=== PATIENT | female | born 1945 | race Caucasian/White ===

== ENCOUNTER 2017-01-22 11:19 | Emergency (ER) | payer MEDICARE, OTHER ==
[2017-01-22] MEDS ORDERED: NAPROXEN 250 MG TABLET PO STA (12:28)
--- NOTE | 2017-01-22 12:31 | ED Physician Documentation ---
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 For the last 2 weeks she has had indolent and increasing pain that is very focal along the posterior of the left upper humerus. There is no motion makes it worse, it is not worse with exertion. There is no associated chest pain or trouble breathing. No dizziness. There was no injury. She tried Tylenol without relief. 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 : None HEENT: None Psych: None Musculoskeletal: Other Derm: None Other Past Medical History: Osteopenia, - Past Surgical History Past Surgical History: Yes General: Appendectomy /SUPERVISOR HEAT TREATING: Mastectomy - Allergies Allergies/Adverse Reactions: Allergies Allergy/AdvReac Type Severity Reaction Status Date / Time No Known Drug Allergies Allergy Verified 01/22/17 11:39 - Social History Does the pt smoke?: No Smoking Status: Never smoker Does the pt drink ETOH?: No Does the pt have substance abuse?: No - Family History Family history: reports: Non contributory PD ED PE NORMAL - Vitals Vital signs reviewed: Yes - General General: Alert and oriented X 3, No acute distress - HEENT HEENT: Moist mucous membranes, Pharynx benign - Neck Neck: Supple, no meningeal sign, No bony TTP - Cardiac Cardiac: RRR, No murmur - Respiratory Respiratory: No respiratory distress, Clear bilaterally - Abdomen Abdomen: Soft, Non tender - Extremities Extremities: Other (She has full and painless range of motion of the left upper extremity, there is no tenderness in the area she describes, no shingles rash. She has equal radial pulses, normal behavioral psychologist strength, thumb extension, interossei strength.) - Neuro Neuro: Alert and oriented X 3, Normal speech - Psych Psych: Normal mood, Normal affect Results - Vitals Vitals: Vital Signs - 24 hr 01/22/17 01/22/17 11:36 12:48 Temperature 36.3 C L Heart Rate 88 65 Respiratory 16 16 Rate Blood Pressure 123/75 109/85 H O2 Saturation 98 98 Oxygen O2 Source Room air - Labs Labs: Laboratory Tests 01/22/17 01/22/17 12:50 12:50 WBC 5.7 RBC 4.05 L Hgb 12.7 Hct 37.3 MCV 92.1 MCH 31.4 H MCHC 34.1 RDW 13.5 Plt Count 212 MPV 7.5 L Neut # 3.4 Lymph # 1.8 Rains # 0.5 Eos # 0.0 Baso # 0.0 Absolute Nucleated RBC 0.00 Nucleated RBCs 0.0 Sodium 138 Potassium 4.1 Chloride 102 Carbon Dioxide 28 Anion Gap 8.0 BUN 20 Creatinine 0.8 Estimated GFR (MDRD) 71 L Glucose 95 Calcium 9.4 Total Bilirubin 0.7 AST 25 ALT 11 Alkaline Phosphatase 40 L Total Protein 6.8 Albumin 4.3 Globulin 2.5 Albumin/Globulin Ratio 1.7 Lipase 31 - Rads (name of study) L humerus Radiology: EMP read contemporaneously (negative) PD MEDICAL DECISION MAKING - ED course ED course: 71-year-old woman presents with unexplained left arm pain. Cardiac causes considered, however 2 weeks of pain, that is nonexertional with no other symptoms seems very unlikely. There is no shingles rash. Metastatic breast cancer or other cancer is considered, but less likely given negative x-ray. If pain persists they are advised to follow-up with her primary care physician for advanced imaging. Departure - Departure Disposition: Home, Self Care Clinical Impression: Left arm pain Condition: Good Record reviewed to determine appropriate education?: Yes Instructions: ED Acute Pain [facility] Comments: You can take Aleve, per package instructions twice a day as needed for pain. If you find herself taking it for more than a few days take Prilosec which is available [id number]. Follow up with Dr. young for further evaluation and treatment, return if worse or if new symptoms develop.
[2017-01-22] MEDS ORDERED: NAPROXEN 250 MG TABLET PO ONE (12:41)
[2017-01-22 13:06] LABS: BASOPHILS % (AUTO) 0.6 %; EOSINOPHILS % (AUTO) 0.8 %; HCT - HEMATOCRIT 37.3 % (37.0-47.0); HGB - HEMOGLOBIN 12.7 g/dL (12.0-16.0); LYMPHOCYTES # (AUTO) 1.8 10^3/uL (1.5-3.5); LYMPHOCYTES % (AUTO) 31.2 %; MEAN CORPUSCULAR HEMOGLOBIN 31.4 pg (27.0-31.0); MEAN CORPUSCULAR HGB CONC 34.1 g/dL (32.0-36.0); MEAN CORPUSCULAR VOLUME 92.1 fL (81.0-99.0); MEAN PLATELET VOLUME 7.5 fL (7.9-10.8); MONOCYTES # (AUTO) 0.5 10^3/uL (0.0-1.0); MONOCYTES % (AUTO) 8.3 %; NEUTROPHILS # (AUTO) 3.4 10^3/uL (1.5-6.6); NEUTROPHILS % (AUTO) 59.1 %; RED BLOOD COUNT 4.05 10^6/uL (4.20-5.40); RED CELL DISTRIBUTION WIDTH 13.5 % (12.0-15.0); UNCORRECTED WHITE BLOOD COUNT 5.7 x10^3/uL; WHITE BLOOD COUNT 5.7 x10^3/uL (4.8-10.8)
--- NOTE | 2017-01-22 13:06 | XRAY Report ---
EXAM: LEFT HUMERUS RADIOGRAPHY EXAM DATE: 01/22/2017 12:54 PM. CLINICAL HISTORY: Arm pain. COMPARISON: None. TECHNIQUE: 2 views. FINDINGS: Bones: Normal. No fractures or bone lesions. Joints: Normal. No effusions or subluxations in the visualized shoulder or elbow joints. Soft Tissues: Normal. No soft tissue swelling. IMPRESSION: Normal humerus radiography. [facility] Referring Provider Line: [phone] SITE ID: [id number]
[2017-01-22 13:27] LABS: ALBUMIN/GLOBULIN RATIO 1.7 (1.0-2.2); BILIRUBIN,TOTAL 0.7 mg/dL (0.2-1.0); CALCIUM 9.4 mg/dL (8.5-10.3); CREATININE 0.8 mg/dL (0.4-1.0); POTASSIUM 4.1 mmol/L (3.5-5.0); TOTAL PROTEIN 6.8 g/dL (6.7-8.2)
[2017-01-22 13:36] VITALS: BP 112/67
== END 2017-01-22 15:21 | disposition home or self-care (01) ==
LOC: ED 11:19
DX: M79.602 Pain in left arm (principal); Z85.3 Personal history of malignant neoplasm of breast; Z90.10 Acquired absence of unspecified breast and nipple
CPT/HCPCS: 36415; 73060; 80053; 83690; 85025; 99283; A9270

== ENCOUNTER 2017-02-06 12:28 | Outpatient (CLI) | payer MEDICARE, OTHER ==
--- NOTE | 2017-02-06 14:08 | XRAY Report ---
THREE-VIEW CERVICAL SPINE: 02/06/2017 CLINICAL INDICATION: Left arm pain. FINDINGS: AP, lateral, odontoid views of the cervical spine demonstrate moderate degenerative disk a nd facet disease. Disk space narrowing is worst at C4-5. There is no evidence of acute fracture or subluxation. The prevertebral soft tissues are unremarkable. IMPRESSION: MODERATE DEGENERATIVE CHANGES. JOB #: [id number] EXT JOB #:[id number]
== END 2017-02-06 12:29 | disposition home or self-care (01) ==
LOC: DI 12:28
PROVIDERS: ATTEND Internal Medicine
DX: M50.321 Other cervical disc degeneration at C4-C5 level (principal); M47.9 Spondylosis, unspecified
CPT/HCPCS: 72040

== ENCOUNTER 2017-02-25 10:12 | Outpatient (CLI) | payer MEDICARE, OTHER ==
--- NOTE | 2017-02-25 12:45 | MRI Report ---
EXAM: MRI CERVICAL SPINE WITHOUT CONTRAST EXAM DATE: 02/25/2017 10:54 AM. CLINICAL HISTORY: Left arm pain. Degenerative joint disease. COMPARISONS: Cervical spine MRI from 06/07/2007. TECHNIQUE: Multiplanar, multisequence T1-weighted and fluid-sensitive sequences of the cervical spine without contrast. Other: None. FINDINGS: Neurologic Structures: The visualized posterior fossa structures are unremarkable. No signal abnormal ity in the visualized spinal cord. Alignment: Minimal retrolisthesis at C5-C6 and C6-C7 by approximately 2 mm. The retrolisthesis at C6- C7 is new since the previous study. Bone Marrow: No gross fractures or bone lesions. No marrow edema. Interspace Levels/Facets: The craniocervical junction is unremarkable. C1-C2: Unremarkable. C2-C3: Tiny posterior central disk protrusion. No stenoses. No change. C3-C4: Mild to moderate disk space narrowing and degenerative endplate changes. Small posterior right paracentral disk protrusion/osteophyte complex. Bilateral uncovertebral joint osteophytes, right mor e than left. Mild left and severe right facet arthropathy. Moderate narrowing of the entry zone of th e exiting right C4 nerve. Moderate right foraminal stenosis. No change. C4-C5: Severe left sided and moderate to severe right-sided disk space narrowing. Small disk bulge/os teophyte complex which is asymmetric towards the left. Moderate left and mild right facet arthropathy . Mild canal stenosis. Smsu-lb-zkrkrmgj narrowing of the entry zone of the exiting left C5 nerve. Mod erate left foraminal stenosis. No change. C5-C6: Minimal disk bulge. Hgls-tw-srzrrbis left and moderate right facet arthropathy. Mild left fora donny stenosis. No change. C6-C7: Ddmp-vv-numqtaxb facet arthropathy. No stenoses. C7-T1: Moderate left facet arthropathy. No stenoses. No change. Musculature: Normal. No edema or fatty atrophy. Other: The paravertebral and prevertebral soft tissues are normal. IMPRESSION: 1. Multilevel degenerative disk changes, osteophytosis, and facet arthropathy. There are varying degr ees of stenoses. The more significant levels are at C3-C4 and C4-C5. No change of these findings sinc e the previous study. 2. Minimal retrolisthesis at C5-C6 and C6-C7. The C6-C7 retrolisthesis is new since the previous stud y. 3. Small posterior right paracentral disk protrusion/osteophyte complex at C3-C4. Moderate narrowing of the entry zone of the exiting right C4 nerve. Moderate right foraminal stenosis. 4. Small disk bulge/osteophyte complex which is asymmetric towards the left at C4-C5. Mild canal sten osis. Whik-yu-uorridvk narrowing of the entry zone of the exiting left C5 nerve. Moderate left forami nal stenosis. [facility] Referring Provider Line: [phone] SITE ID: [id number]
== END 2017-02-25 10:13 | disposition home or self-care (01) ==
LOC: DI 10:12
PROVIDERS: ATTEND Internal Medicine
DX: M50.21 Other cervical disc displacement, high cervical region (principal); M50.30 Other cervical disc degeneration, unspecified cervical region; M47.892 Other spondylosis, cervical region; M43.12 Spondylolisthesis, cervical region
CPT/HCPCS: 72141

== ENCOUNTER 2017-03-01 16:53 | Outpatient (CLI) | payer MEDICARE, OTHER | END 2017-03-01 16:54 | disposition critical access hospital (66) | LOC: EMS 16:53 | PROVIDERS: ATTEND Surgery | DX: M25.532 Pain in left wrist (principal); W01.0XXA Fall on same level from slipping, tripping and stumbling without subsequent striking against object, initial encounter; Y93.01 Activity, walking, marching and hiking; Y92.481 Parking lot as the place of occurrence of the external cause | CPT/HCPCS: A0425; A0427 ==

== ENCOUNTER 2017-03-01 17:30 | Emergency (ER) | payer MEDICARE, OTHER ==
--- NOTE | 2017-03-01 17:38 | ED Physician Documentation ---
PD HPI UPPER EXT INJURY - Stated complaint Stated Complaint: FALL - Chief complaint Chief Complaint: Ext Problem - History obtained from History obtained from: Patient, EMS - History of Present Illness Location: Other (She had a trip and fall landing on an outstretched left, nondominant wrist and has deformed wrist, no other injuries. 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 : None HEENT: None Psych: None Musculoskeletal: Other Derm: None - Past Surgical History Past Surgical History: Yes General: Appendectomy /LICENSED CLINICIAN: Mastectomy - Present Medications Home Medications: Ambulatory Orders Medication Instructions Recorded Confirmed Citalopram [CeleXA] 10 mg PO DAILY 03/01/17 03/01/17 HYDROcod/ACETAM 5/325 [[place] 5/325] 1 - 2 ea PO Q6H PRN #15 tablet 03/01/17 - Allergies Allergies/Adverse Reactions: Allergies Allergy/AdvReac Type Severity Reaction Status Date / Time No Known Drug Allergies Allergy Verified 01/22/17 11:39 - Social History Does the pt smoke?: No Smoking Status: Never smoker Does the pt drink ETOH?: No Does the pt have substance abuse?: No PD ED PE NORMAL - Vitals Vital signs reviewed: Yes - General General: Alert and oriented X 3, No acute distress - HEENT HEENT: PERRL, EOMI - Neck Neck: Supple, no meningeal sign, No bony TTP - Extremities Extremities: No calf tenderness / cord, Other (Very mild dorsal deformity of the left wrist with tenderness, normal sensation in all areas of the hand and normal radial pulse.) - Neuro Neuro: Alert and oriented X 3, Normal speech - Psych Psych: Normal mood, Normal affect Results - Vitals Vitals: Vital Signs - 24 hr 03/01/17 03/01/17 03/01/17 17:32 18:06 19:15 Temperature 36.6 C Heart Rate 76 75 65 Respiratory 15 16 12 Rate Blood Pressure 137/65 H 112/64 125/76 O2 Saturation 94 97 98 Oxygen O2 Source Room air - Rads (name of study) L wrist 3v XR Radiology: EMP read contemporaneously (Mildly impacted distal left radius fracture with mild dorsal angulation) Procedures - Splint (location) L wrist Splint applied by: Tech Type of splint: Fiberglass, Long arm, Sugar tong Other: Patient tolerated well, No complications, Neurovascular intact, Sling provided Departure - Departure Disposition: 01 Home, Self Care Clinical Impression: Distal radius fracture, left Qualifiers: Encounter type: initial encounter Fracture type: closed Fracture morphology: Collejayant' Qualified Code(s): S52.532A - Colles' fracture of left radius, initial encounter for closed fracture Condition: Good Record reviewed to determine appropriate education?: Yes Instructions: ED Fx Forearm Radius Ulna No Redu Requ Follow-Up: [facility] [Provider Group] - Within 1 week Prescriptions: HYDROcod/ACETAM 5/325 [[place] 5/325] 1 - 2 ea PO Q6H PRN #15 tablet PRN Reason: Pain Comments: Do not drink or drive while taking narcotic pain medication. Note that many narcotic pain relievers also contain Tylenol/acetaminophen. Please ensure that your total dose of acetaminophen from all sources does not exceed 3 g (3000 mg) per day. You may get constipated while on this medication. Take a stool softener such as Colace twice a day while you are on it. Also add an gqsy-rds-wuduqrt laxative such as senna or MiraLAX on any day that you do not have a bowel movement. If you received a narcotic pain medication or sedative while in the emergency department, do not drive for the next 24 hours.
[2017-03-01] MEDS ORDERED: HYDROmorphone 1 MG/ML CARPUJECT IVP STA (17:55)
[2017-03-01] MEDS ORDERED: HYDROcod/ACET 5/325 Prepack 6 PO STA (18:57)
--- NOTE | 2017-03-01 19:05 | XRAY Preliminary Report ---
Exam: XR Wrist 3 View LT IMPRESSION: 1. Mildly impacted distal left radius fracture with mild dorsal angulation. [facility] SITE ID: [id number]
[2017-03-01] MEDS ORDERED: HYDROcod/ACET 5/325 Prepack 6 PO ONE (19:23)
--- NOTE | 2017-03-01 19:46 | XRAY Report ---
EXAM: LEFT WRIST RADIOGRAPHY EXAM DATE: 03/01/2017 06:51 PM. CLINICAL HISTORY: Wrist injury. Pain. Deformity. COMPARISON: None. TECHNIQUE: 3 views. FINDINGS: Bones: Impacted distal left radius fracture is seen with dorsal angulation measuring approximately 10 -15 degrees. Longitudinal component of the fracture is seen best on the lateral view. Joints: No dislocation. Degenerative changes of the left wrist. Soft Tissues: Soft tissue swelling. IMPRESSION: 1. Mildly impacted distal left radius fracture with mild dorsal angulation. [facility] Referring Provider Line: [phone] SITE ID: [id number]
[2017-03-01 19:53] VITALS: BP 136/75
== END 2017-03-01 19:57 | disposition home or self-care (01) ==
LOC: EDUNIT# → ED 17:30
DX: S52.532A Colles' fracture of left radius, initial encounter for closed fracture (principal); W01.0XXA Fall on same level from slipping, tripping and stumbling without subsequent striking against object, initial encounter; Z85.3 Personal history of malignant neoplasm of breast; Z90.10 Acquired absence of unspecified breast and nipple
CPT/HCPCS: 29105; 96374; 99283; 99284

== ENCOUNTER 2017-03-02 07:13 | Outpatient (CLI) | payer MEDICARE, OTHER | END 2017-03-02 07:14 | disposition EMS.NT | LOC: EMS 07:13 | PROVIDERS: ATTEND Surgery | DX: M25.532 Pain in left wrist (principal) ==

== ENCOUNTER 2017-04-18 16:39 | Outpatient (CLI) | payer MEDICARE, OTHER ==
--- NOTE | 2017-04-20 09:16 | MRI Report ---
EXAM: LEFT SHOULDER MRI WITHOUT CONTRAST EXAM DATE: 04/18/2017 05:28 PM. CLINICAL HISTORY: Arm pain, left. COMPARISON: Left humeral radiography from 04/18/2017. TECHNIQUE: Multiplanar, multisequence T1-weighted and fluid-sensitive sequences of the shoulder witho ut contrast. Other: None. FINDINGS: Acromioclavicular Region: The acromion is type II. The acromioclavicular joint is unremarkable. The c oracoacromial and coracoclavicular ligaments are intact. No subacromial/subdeltoid bursal fluid. Glenohumeral Region: No subluxation. Small glenohumeral joint effusion. There is a 5 x 3 mm loose bod y or focus of synovial thickening at the inferior aspect of glenohumeral joint. The articular cartila ge is unremarkable. The glenohumeral ligaments and joint capsule are unremarkable. Bone Marrow: No fracture, marrow edema or bone lesions. Labrum: There is a probable sub-labral foramen variant at the anterosuperior aspect of the labrum. De generative free edge fraying at the inferior aspect of the labrum. Musculature/Rotator Cuff: There is tendinosis at the distal end of the supraspinatus tendon. There is a small 7 x 1 mm linear low-grade partial-thickness intrasubstance tear at the distal aspect of the supraspinatus tendon. The infraspinatus and teres minor tendons are intact. There is an approximately 5 x 4 mm partial-thickness bursal surface tear at the distal end of the subscapularis tendon. Tear i nvolves approximately 80-90% of the tendon thickness at this location. There is a 1.4 x 0.3 x 0.2 cm ganglion within and arising from the tear. No edema or fatty atrophy. Biceps Tendon: The long head of the biceps tendon and biceps luisito are intact. Other: The subcutaneous tissues are unremarkable. IMPRESSION: 1. Tendinosis at the distal end of the supraspinatus tendon. Small 7 x 1 mm linear low-grade partial- thickness intrasubstance tear at the distal aspect of the supraspinatus tendon. 2. Small focal 5 x 4 mm high-grade partial-thickness bursal surface tear at the distal end of the sub scapularis tendon. There is a small ganglion within and arising from the subscapularis tendon tear. N o full-thickness rotator cuff tear. 3. Degenerative free edge fraying of the inferior aspect of the labrum. 4. A 5 x 3 mm loose body or focus of synovial thickening at the inferior aspect of the glenohumeral j oint. [facility] MUSCULOSKELETAL [facility]IOLOGY SECTION Referring Provider Line: [phone] SITE ID: [id number]
== END 2017-04-18 16:40 | disposition home or self-care (01) ==
LOC: DI 16:39
PROVIDERS: ATTEND Internal Medicine
DX: M75.102 Unspecified rotator cuff tear or rupture of left shoulder, not specified as traumatic (principal); M67.412 Ganglion, left shoulder

== ENCOUNTER 2017-06-23 15:07 | Outpatient (CLI) | payer MEDICARE, OTHER ==
--- NOTE | 2017-06-24 09:47 | XRAY Report ---
DATE OF SERVICE: 06/23/2017 THREE VIEW LUMBAR SPINE: 06/23/2017 CLINICAL INDICATION: Back pain. COMPARISON: MRI 01/21/2013, plain films 01/10/2013. FINDINGS: AP, lateral, coned down views of the lumbar spine demonstrate stable degenerative disk and facet disease, with disk space narrowing worst at L1-L2. There is no evidence of interval fracture or subluxation. The bowel gas pattern is normal. IMPRESSION: STABLE DEGENERATIVE CHANGES. NO SIGNIFICANT INTERVAL CHANGE. TD: 06/24/2017 10:46
--- NOTE | 2017-06-24 09:49 | XRAY Report ---
DATE OF SERVICE: 06/23/2017 FRONTAL PELVIS: 06/23/2017 CLINICAL INDICATION: Pain. FINDINGS: Frontal view of the pelvis is compared to previous film of 01/15/2013. There is no evidence of acute fracture. Mild degenerative changes are seen in the hip joints and sacroiliac joints. Surgical clips are seen in the right lower quadrant. IMPRESSION: MILD DEGENERATIVE CHANGES. NO EVIDENCE OF ACUTE FRACTURE. TD: 06/24/2017 10:48
== END 2017-06-23 15:08 | disposition home or self-care (01) ==
LOC: DI 15:07
PROVIDERS: ATTEND Internal Medicine
DX: M16.0 Bilateral primary osteoarthritis of hip (principal); M47.898 Other spondylosis, sacral and sacrococcygeal region
CPT/HCPCS: 72100; 72170

== ENCOUNTER 2018-09-13 13:11 | Outpatient (CLI) | payer MEDICARE, OTHER ==
[2018-09-13 18:36] LABS: ALBUMIN 4.5 g/dL (3.2-5.5); ALBUMIN/GLOBULIN RATIO 1.7 (1.0-2.2); ALKALINE PHOSPHATASE 41 IU/L (42-121); ALT ALANINE AMINOTRANSFERASE 14 IU/L (10-60); AST ASPARTATE AMINOTRANSFERASE 26 IU/L (10-42); BILIRUBIN,TOTAL 1.1 mg/dL (0.2-1.0); BUN - BLOOD UREA NITROGEN 28 mg/dL (6-20); CALCIUM 9.7 mg/dL (8.5-10.3); CARBON DIOXIDE - CO2 29 mmol/L (21-32); CHLORIDE 104 mmol/L (101-111); CHOL/HDL RATIO 3.8 (<4.4); CHOLESTEROL 331 mg/dL; CREATININE 0.7 mg/dL (0.4-1.0); GFR - MDRD 82 (>89); GLUCOSE 87 mg/dL (70-100); HDL CHOLESTEROL 87 mg/dL; LDL CHOLESTEROL,CALCULATED 236 mg/dL; LDL/HDL RATIO 2.7 (<4.4); SODIUM 140 mmol/L (135-145); TOTAL PROTEIN 7.2 g/dL (6.7-8.2); VLDL CHOLESTEROL 8 mg/dL
== END 2018-09-13 13:12 | disposition home or self-care (01) ==
LOC: LAB.F 13:11
PROVIDERS: ATTEND Internal Medicine
DX: E78.5 Hyperlipidemia, unspecified (principal)
CPT/HCPCS: 36415; 80053; 80061; 83721

== ENCOUNTER 2019-03-09 11:48 | Outpatient (CLI) | payer MEDICARE, OTHER ==
[2019-03-09 18:38] LABS: ALBUMIN 4.3 g/dL (3.2-5.5); ALBUMIN/GLOBULIN RATIO 1.7 (1.0-2.2); ALKALINE PHOSPHATASE 40 IU/L (42-121); ALT ALANINE AMINOTRANSFERASE 15 IU/L (10-60); AST ASPARTATE AMINOTRANSFERASE 24 IU/L (10-42); BILIRUBIN,TOTAL 0.8 mg/dL (0.2-1.0); BUN - BLOOD UREA NITROGEN 24 mg/dL (6-20); CALCIUM 9.2 mg/dL (8.5-10.3); CARBON DIOXIDE - CO2 30 mmol/L (21-32); CHLORIDE 104 mmol/L (101-111); CHOLESTEROL 209 mg/dL; CREATININE 0.7 mg/dL (0.4-1.0); GFR - MDRD 82 (>89); GLUCOSE 88 mg/dL (70-100); HDL CHOLESTEROL 69 mg/dL; LDL CHOLESTEROL,CALCULATED 131 mg/dL; LDL/HDL RATIO 1.9 (<4.4); SODIUM 140 mmol/L (135-145); TOTAL PROTEIN 6.9 g/dL (6.7-8.2); VLDL CHOLESTEROL 9 mg/dL
== END 2019-03-09 11:49 | disposition home or self-care (01) ==
LOC: LAB.S 11:48
PROVIDERS: ATTEND Internal Medicine
DX: E78.5 Hyperlipidemia, unspecified (principal)
CPT/HCPCS: 36415; 80053; 80061; 83721

== ENCOUNTER 2019-03-28 21:15 | Outpatient (CLI) | payer MEDICARE, OTHER | END 2019-03-28 21:16 | disposition critical access hospital (66) | LOC: EMS 21:15 | PROVIDERS: ATTEND Surgery | DX: R51 Headache (principal); R68.89 Other general symptoms and signs; W57.XXXA Bitten or stung by nonvenomous insect and other nonvenomous arthropods, initial encounter | CPT/HCPCS: A0425; A0427 ==

== ENCOUNTER 2019-03-28 21:45 | Emergency (ER) | payer MEDICARE, OTHER ==
--- NOTE | 2019-03-28 21:56 | ED Physician Documentation ---
History of Present Illness - Stated complaint Stated Complaint: BEE STING - History obtained from History obtained from: Patient, Family - Additonal information Additional information: This is a 74-year-old woman who was walking outside today With her dog when she stepped in a hornet/yellowjacket nest. 1 of them stung her on her left ankle through her sock and then another one somehow got inside of her coat and stung her on the left forearm. She became very shaky and subsequently became disoriented. She put ice on the stings but was having a inordinate amount of pain. She took some Tylenol for that but it was not getting any better. She then developed a terrible headache and felt very dizzy. She did not have any seizures or pass out. She is never had a significant reaction to a bee sting in the past. She also took Claritin at home. They called 911 who gave her Benadryl and a half a dose of epinephrine in route after discussing with the medical grade shoemaker. He did contact me prior to the patient's arrival to discuss rare cases of encephalitis or neuritis associated with hymenoptera stings. Review of Systems Constitutional: denies: Fever Eyes: denies: Loss of vision Cardiac: denies: Chest pain / pressure Respiratory: denies: Dyspnea GI: denies: Abdominal Pain, Nausea, Vomiting Skin: denies: Rash Neurologic: reports: Headache. 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 HEENT: None Psych: None Musculoskeletal: Other Derm: None - Past Surgical History Past Surgical History: Yes General: Appendectomy /STOCK DRIER TENDER: Mastectomy - Present Medications Home Medications: Ambulatory Orders Medication Instructions Recorded Confirmed Citalopram [CeleXA] 10 mg PO DAILY 03/01/17 04/05/17 predniSONE [Prednisone] 40 mg PO DAILY #10 tablet 03/28/19 - Allergies Allergies/Adverse Reactions: Allergies Allergy/AdvReac Type Severity Reaction Status Date / Time No Known Drug Allergies Allergy Verified 03/28/19 21:56 - Social History Does the pt smoke?: No Smoking Status: Never smoker Does the pt drink ETOH?: No Does the pt have substance abuse?: No - POLST Patient has POLST: No PD ED PE NORMAL - Vitals Vital signs reviewed: Yes - General General: No acute distress, Well developed/nourished. No: Alert and oriented X 3 (Oriented to Person and place but not time) - HEENT HEENT: Atraumatic, PERRL, EOMI, Moist mucous membranes - Neck Neck: Supple, no meningeal sign, No adenopathy, No JVD - Cardiac Cardiac: RRR, No murmur, Strong equal pulses - Respiratory Respiratory: No respiratory distress, Clear bilaterally - Abdomen Abdomen: Normal bowel sounds, Soft, No organomegaly - Derm Derm: Normal color, Warm and dry, No rash, Other (There is a pinpoint red lesion on her left foot right at the left medial ankle presumably where she was stung. We can even find the actual sting site on the left forearm. No hives.) - Extremities Extremities: No edema - Neuro Neuro: caustic room attendant 2-12 intact, No motor deficit, No sensory deficit - Psych Psych: Normal mood, Normal affect Results - Vitals Vitals: Vital Signs - 24 hr 03/28/19 03/28/19 03/29/19 21:49 23:08 00:08 Temperature 36.8 C Heart Rate 80 76 67 Respiratory 14 18 12 Rate Blood Pressure 130/77 117/83 H 112/75 O2 Saturation 100 99 97 Oxygen O2 Source Room air PD MEDICAL DECISION MAKING - ED course Complexity details: reviewed results, re-evaluated patient, d/w patient, d/w family ED course: I did recommend a head CT scan because of the bizarre nature of this pr esentation and her severe headache. Head CT was negative. She was given Solu- Medrol 125 mg IV and Toradol 30 mg IV. She was still experiencing some pain in the right ankle around the sting site but it was definitely improved. Discussed with her and her the rare possibility of encephalitis or neuritis associated with insect envenomation. They feel comfortable monitoring her symptoms at home. We will place her on 5 days of prednisone 40 mg and follow-up if she develops any signs or symptoms consistent with encephalitis which were discussed with the . Departure - Departure Disposition: 01 Home, Self Care Clinical Impression: Venomous insect bite Qualifiers: Encounter type: initial encounter Injury intent: undetermined intent Qualified Code(s): T63.484A - Toxic effect of venom of other arthropod, undetermined, initial encounter Condition: Good Instructions: Prednisone tablets, ED Bite Sting Insect Local Allergic React Follow-Up: Brett Gomes MD [Primary Care Provider] - Prescriptions: predniSONE [Prednisone] 40 mg PO DAILY #10 tablet Comments: Apply ice to the insect stings if there is still hurting you. Take Tylenol or ibuprofen as needed for pain. Start the prednisone first thing tomorrow 2 tablets daily for 5 days. Monitor closely for any neurological changes such as confusion, increasing headache, vomiting or not acting right. Return immediately if any signs of worsening neurological status. Discharge Date/Time: 03/29/19 00:09
[2019-03-28] MEDS ORDERED: KETOROLAC 30 MG/ML VIAL IVP STA (22:27)
[2019-03-28] MEDS ORDERED: methylPREDNISolone SUCCINATE 125 MG/2 ML VIAL IVP STA (22:27)
--- NOTE | 2019-03-28 23:05 | CT Report ---
Reason: headache Procedure Date: 03/28/2019 Accession Number: [id number] / [id number] Procedure: CT - HEAD WO CPT Code: FULL RESULT: EXAM: CT HEAD EXAM DATE: 03/28/2019 10:54 PM. CLINICAL HISTORY: Headache for 12 hours. COMPARISON: None. TECHNIQUE: Multiaxial CT images were obtained from the foramen magnum to the vertex. Reformats: Sagittal and coronal. IV contrast: None. In accordance with CT protocol optimization, one or more of the following dose reduction techniques were utilized for this exam: automated exposure control, adjustment of mA and/or KV based on patient size, or use of iterative reconstructive technique. FINDINGS: Parenchyma: No intraparenchymal hemorrhage. No evidence of mass, midline shift, or CT findings of acute infarction. Cm-white differentiation is distinct. Extraaxial Spaces: Normal for age. No subdural or epidural collections identified. Ventricles: The ventricles and cortical sulci are prominent, consistent with age-related tissue loss. Sinuses and orbits: Imaged paranasal sinuses, orbits, and mastoids show no significant abnormality. Bones: No evidence of fracture or calvarial defect. Other: None. IMPRESSION: Generalized age-related cortical atrophic changes without evidence of acute intracranial abnormality. [facility]
[2019-03-29 00:09] VITALS: BP 112/75
== END 2019-03-29 00:09 | disposition home or self-care (01) ==
LOC: EDUNIT# → ED 21:45
DX: T63.461A Toxic effect of venom of wasps, accidental (unintentional), initial encounter (principal); X58.XXXA Exposure to other specified factors, initial encounter; R51 Headache; R42 Dizziness and giddiness
CPT/HCPCS: 70450; 99284

== ENCOUNTER 2019-09-14 18:31 | Outpatient (CLI) | payer MEDICARE, OTHER | END 2019-09-14 18:32 | disposition EMS.NT | LOC: EMS 18:31 | PROVIDERS: ATTEND Surgery | DX: S99.912A Unspecified injury of left ankle, initial encounter (principal); W10.8XXA Fall (on) (from) other stairs and steps, initial encounter; Y92.018 Other place in single-family (private) house as the place of occurrence of the external cause ==

== ENCOUNTER 2019-09-14 19:50 | Emergency (ER) | payer MEDICARE, OTHER ==
--- NOTE | 2019-09-14 20:08 | ED Physician Documentation ---
PD HPI LOWER EXT INJURY - Stated complaint Stated Complaint: FALL/LT ANKLE PX - Chief complaint Chief Complaint: Trauma Ext - History obtained from History obtained from: Patient - History of Present Illness PD HPI LOW EXT INJURY LOCATION: Left, Ankle Type of injury: Twist (going upstairs, with twist of ankle and pain.) Where injury occurred: Home Timing - onset: How many minutes ago (30), Today Timing - details: Abrupt onset, Still present Improved by: Ice Worsened by: Moving, Palpating, Other (walking) Associated symptoms: Swelling. No: Weakness, Numbness Similar symptoms before: Has not had sx before Review of Systems Skin: denies: Abrasion (s), Laceration (s) Neurologic: denies: Focal weakness, Numbness PD PAST MEDICAL HISTORY - Past Medical History Past Medical History: Yes Cardiovascular: None Respiratory: None Endocrine/Autoimmune: None GI: None NET MOBILE DEVELOPER: Breast cancer : None HEENT: None Psych: None Musculoskeletal: Other Derm: None - Past Surgical History Past Surgical History: Yes General: Appendectomy /NET MOBILE DEVELOPER: Mastectomy - Present Medications Home Medications: Ambulatory Orders Medication Instructions Recorded Confirmed Citalopram [CeleXA] 10 mg PO DAILY 03/01/17 04/05/17 predniSONE [Prednisone] 40 mg PO DAILY #10 tablet 03/28/19 - Allergies Allergies/Adverse Reactions: Allergies Allergy/AdvReac Type Severity Reaction Status Date / Time No Known Drug Allergies Allergy Verified 09/14/19 19:57 - Social History Does the pt smoke?: No Smoking Status: Never smoker Does the pt drink ETOH?: No Does the pt have substance abuse?: No - POLST Patient has POLST: No PD ED PE NORMAL - Vitals Vital signs reviewed: Yes - General General: Alert and oriented X 3, Well developed/nourished - Derm Derm: Normal color, Warm and dry - Extremities Extremities: Other (In the anterolateral aspect of the lateral left ankle there is swelling and tenderness. No obvious deformity. The Achilles is firm and nontender. The distal foot and toes are not tender. There is no tenderness in the proximal lower leg.) - Neuro Neuro: No motor deficit, No sensory deficit Results - Vitals Vitals: Vital Signs - 24 hr 09/14/19 09/14/19 19:54 21:05 Temperature 37.0 C Heart Rate 87 84 Respiratory 20 14 Rate Blood Pressure 137/71 H 134/80 H O2 Saturation 97 99 Oxygen O2 Source Room air - Rads (name of study) left ankle Radiology: Prelim report reviewed (no fractures), See rad report PD MEDICAL DECISION MAKING - ED course Complexity details: reviewed results, considered differential, d/w patient Departure - Departure Disposition: 01 Home, Self Care Clinical Impression: Ankle sprain Qualifiers: Encounter type: initial encounter Involved ligament of ankle: unspecified ligament Laterality: left Qualified Code(s): S93.402A - Sprain of unspecified ligament of left ankle, initial encounter Condition: Stable Record reviewed to determine appropriate education?: Yes Instructions: ED Sprain Ankle W X Ray Follow-Up: Brett Gomes MD [Primary Care Provider] - Comments: Anti-inflammatories such as naproxen or ibuprofen 2-3 times a day and add Tylenol every 4-6 hours if needed for pain. Elevate rest and cool towels or ice to the area often tonight and tomorrow to reduce swelling. Ankle support/brace when up and around for the next couple of weeks till fully healed and feeling strong with walking. Use your crutches as needed for discomfort and progress weightbearing as tolerated. I would anticipate improvement as the swelling goes down over the next few days and decrease in the pain with walking over 1 to 2 weeks and resolution during that timeframe. Recheck if still hurting with walking after 1 to 2 weeks. Discharge Date/Time: 09/14/19 21:14
[2019-09-14] MEDS: IBUPROFEN 400 MG TABLET PO STA (20:23)
[2019-09-14] MEDS: ACETAMINOPHEN 325 MG TABLET PO STA (20:23)
--- NOTE | 2019-09-14 20:29 | XRAY Report ---
Reason: injury from fall, L ankle pain Procedure Date: 09/14/2019 Accession Number: [id number] / [id number] Procedure: XR - Ankle 3 View LT CPT Code: Final Report FULL RESULT: EXAM: LEFT ANKLE RADIOGRAPHY EXAM DATE: 09/14/2019 08:20 PM. CLINICAL HISTORY: Injury from fall, L ankle pain. COMPARISON: None. TECHNIQUE: 3 views. FINDINGS: Bones: Normal. No fractures or bone lesions. Joints: Moderate joint effusion. No subluxations. The ankle mortise is normally aligned. Soft Tissues: Normal. No soft tissue swelling. IMPRESSION: 1. No fracture or malalignment. 2. Moderate left ankle joint effusion. RADIA
[2019-09-14 21:06] VITALS: BP 134/80
== END 2019-09-14 21:14 | disposition home or self-care (01) ==
LOC: ED 19:50
DX: S93.402A Sprain of unspecified ligament of left ankle, initial encounter (principal)
CPT/HCPCS: 73610; 99283; A9270

== ENCOUNTER 2020-11-22 15:07 | Emergency (ER) | payer MEDICARE, OTHER ==
[2020-11-22 17:29] LABS: BASOPHILS % (AUTO) 0.3 %; EOSINOPHILS # (AUTO) 0.1 10^3/uL (0.0-0.7); EOSINOPHILS % (AUTO) 1.1 %; HCT - HEMATOCRIT 43.6 % (37.0-47.0); HGB - HEMOGLOBIN 14.3 g/dL (12.0-16.0); LYMPHOCYTES # (AUTO) 1.4 10^3/uL (1.5-3.5); LYMPHOCYTES % (AUTO) 22.2 %; MEAN CORPUSCULAR HEMOGLOBIN 31.6 pg (27.0-31.0); MEAN CORPUSCULAR HGB CONC 32.8 g/dL (32.0-36.0); MEAN CORPUSCULAR VOLUME 96.2 fL (81.0-99.0); MEAN PLATELET VOLUME 9.3 fL (7.9-10.8); MONOCYTES # (AUTO) 0.6 10^3/uL (0.0-1.0); MONOCYTES % (AUTO) 9.2 %; NEUTROPHILS # (AUTO) 4.1 10^3/uL (1.5-6.6); PLT - PLATELET COUNT 244 10^3/uL (130-450); RED BLOOD COUNT 4.53 10^6/uL (4.20-5.40); RED CELL DISTRIBUTION WIDTH 13.1 % (12.0-15.0); WHITE BLOOD COUNT 6.1 x10^3/uL (4.8-10.8)
--- NOTE | 2020-11-22 17:40 | XRAY Report ---
PROCEDURE: Chest 1 View X-Ray INDICATIONS: Chest Pain TECHNIQUE: One view of the chest was acquired. COMPARISON: None FINDINGS: Surgical changes and devices: None. Lungs and pleura: No pleural effusions or pneumothorax. Lungs are clear. Mediastinum: Mediastinal contours appear normal. Heart size is normal. Bones and chest wall: No suspicious bony lesions. Overlying soft tissues appear unremarkable. IMPRESSION: No acute process. Reviewed by: Fely Owusu MD on 11/22/2020 5:39 PM PDT Approved by: Fely Owusu MD on 11/22/2020 5:39 PM PDT Station ID: [id number]
[2020-11-22 17:45] LABS: ALBUMIN 4.9 g/dL (3.2-5.5); ALBUMIN/GLOBULIN RATIO 2.1 (1.0-2.2); BILIRUBIN,TOTAL 0.6 mg/dL (0.2-1.0); CALCIUM 9.2 mg/dL (8.5-10.3); CREATININE 0.7 mg/dL (0.4-1.0); TOTAL PROTEIN 7.2 g/dL (6.7-8.2)
--- NOTE | 2020-11-22 18:41 | ED Physician Documentation ---
History of Present Illness - Stated complaint Stated Complaint: dizzy, double vision, memory issue - Chief complaint Chief Complaint: General - History obtained from History obtained from: Patient, Family - Additonal information Additional information: Pt comes to the ED with chief complaint of episodic double vision and an episode of dizziness. helps give history, as he states the pt has some "memory issues" for which she is under the care of a neurologist. He states the pt has had two episodes of double vision in the past week, one of which involved looking at subtitles while watching TV, and the other while looking up at the ball. The episodes did not occur on the same day, and did not involve the entire vision, but only looking at certain objects. The most recent episode was last night. Pt states she has had intermittent episodes of dizziness, which she describes as an inappropriate sense of movement. The last episode occurred within the past 24 hours. Episodes are brief, lasting some minutes. No headache. No N/V. No other focal neurologic deficits. Pt is asymptomatic currently. states that the pt was recently started on a new medication, and wonders if the sx might be a side effect of this. Review of Systems Ten Systems: 10 systems reviewed and negative Constitutional: reports: Reviewed and negative Eyes: reports: Other (diplopia) Ears: reports: Reviewed and negative Nose: reports: Reviewed and negative Throat: reports: Reviewed and negative Cardiac: reports: Reviewed and negative Respiratory: reports: Reviewed and negative GI: reports: Reviewed and negative : reports: Reviewed and negative Skin: reports: Reviewed and negative Musculoskeletal: reports: Reviewed and negative Neurologic: reports: Other (vertigo, diplopia) Psychiatric: reports: Reviewed and negative Endocrine: reports: Reviewed and negative Immunocompromised: reports: Reviewed and negative PD PAST MEDICAL HISTORY - Past Medical History Cardiovascular: None Respiratory: None Endocrine/Autoimmune: None GI: None 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: Breast cancer : None HEENT: None Psych: None Musculoskeletal: Other Derm: None - Past Surgical History Past Surgical History: Yes General: Appendectomy /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 OFFICER: Mastectomy - Present Medications Home Medications: Ambulatory Orders Medication Instructions Recorded Confirmed Citalopram [CeleXA] 10 mg PO DAILY 03/01/17 04/05/17 predniSONE [Prednisone] 40 mg PO DAILY #10 tablet 03/28/19 Aspirin Chewable [St Alvin 81 mg PO DAILY #60 tablet 11/22/20 Aspirin] - Allergies Allergies/Adverse Reactions: Allergies Allergy/AdvReac Type Severity Reaction Status Date / Time bupropion Allergy Unknown Verified 11/22/20 21:14 - Social History Does the pt smoke?: No Smoking Status: Never smoker Does the pt drink ETOH?: No Does the pt have substance abuse?: No - POLST Patient has POLST: No PD ED PE NORMAL - Vitals Vital signs reviewed: Yes - General General: Alert and oriented X 3, No acute distress - HEENT HEENT: Atraumatic, PERRL, EOMI, Moist mucous membranes - Neck Neck: Supple, no meningeal sign - Cardiac Cardiac: RRR, No murmur - Respiratory Respiratory: Clear bilaterally - Abdomen Abdomen: Normal bowel sounds, Soft, Non tender, Non distended - Derm Derm: Normal color, Warm and dry, No rash - Extremities Extremities: No deformity, Normal ROM s pain, No edema - Neuro Neuro: Alert and oriented X 3, drier take off tender 2-12 intact, No motor deficit, No sensory deficit, Normal speech - Psych Psych: Normal mood, Normal affect Results - Vitals Vitals: Oxygen O2 Source Room air - EKG (time done) 1511 Rate: Rate (enter#) (71) Rhythm: NSR [place]: LAD Intervals: Normal [place] QRS: Normal Ischemia: Normal ST segments Compare to prior EKG: Old EKG unavailable Computer interpretation: Agree with computer - Labs Labs: Laboratory Tests 11/22/20 11/22/20 11/22/20 17:24 17:24 17:24 WBC 6.1 RBC 4.53 Hgb 14.3 Hct 43.6 MCV 96.2 MCH 31.6 H MCHC 32.8 RDW 13.1 Plt Count 244 MPV 9.3 Neut # (Auto) 4.1 Lymph # (Auto) 1.4 L [place] # (Auto) 0.6 Eos # (Auto) 0.1 Baso # (Auto) 0.0 Absolute Nucleated RBC 0.00 Nucleated RBC % 0.0 Sodium 137 Potassium 4.0 Chloride 100 L Carbon Dioxide 29 Anion Gap 8.0 BUN 29 H Creatinine 0.7 Estimated GFR (MDRD) 82 L Glucose 145 H Calcium 9.2 Total Bilirubin 0.6 AST 23 ALT 16 Alkaline Phosphatase 45 Troponin I High Sens 3.0 Total Protein 7.2 Albumin 4.9 Globulin 2.3 Albumin/Globulin Ratio 2.1 Lipase 33 - Rads (name of study) CXR Radiology: Final report received, EMP read indepedently, See rad report (nad) PD MEDICAL DECISION MAKING - ED course Complexity details: reviewed results, re-evaluated patient, considered differential, d/w patient, d/w family ED course: Pt was worked up with labs, EKG, CXR, and CT/CTA head/neck. She was overall very well-appearing in the ED, and NIHSS score was 0. Her work-up was unremarkable. I have d/w pt and that I am not exactly sure of the cause of the pt's sx, as they are minor and fairly nonspecific. We have discussed the possibility of atypical TIA, adverse medication effect, MS, or complication of dementia. We have discussed that the pt should follow up with her neurologist and her PCP in the near future for further evaluation, should the episodes continue to happen. We have discussed the usual indications for return. Departure - Departure Disposition: 01 Home, Self Care Clinical Impression: Diplopia, Vertigo Condition: Stable Instructions: ED Double Vision, ED Vertigo Unspecified Prescriptions: Aspirin Chewable [St Alvin Aspirin] 81 mg PO DAILY #60 tablet Comments: Your work-up, including CT angiogram of the head and neck, looks fairly good. There is no evidence of an acute occlusion of any of the arteries of your head and neck, and there is no evidence of any narrowing of your carotid arteries. You do not have a heart murmur and your cardiac rhythm is normal. As such, it is highly unlikely that you would have any sort of clot that would be springing from the heart itself. You may follow-up with your primary doctor to discuss whether an echocardiogram would still be indicated in the outpatient setting, considering the above. Please take an aspirin every day to help prevent stroke. Please follow-up with your neurologist to further evaluate the symptoms you have been having. Discharge Date/Time: 11/22/20 21:05
[2020-11-22] MEDS ORDERED: IOVERSOL 320 100 ML VIAL IVP ONE ×2 (18:42→21:35)
--- NOTE | 2020-11-22 20:30 | CT Report ---
PROCEDURE: ANGIO HEAD W/WO INDICATIONS: L sided facial droop CONTRAST: IV CONTRAST: Optiray 320 ml: 80 PO CONTRAST: *NO PO CONTRAST TECHNIQUE: Precontrast 4.5 mm thick angled axial sections acquired from the foramen magnum to the vertex. Afte r the administration of intravenous contrast, 1 mm thick sections acquired through the [place] of [place] is. Postcontrast 4.5 mm thick sections then re-acquired from the foramen magnum to the vertex. 3-di mensional esnhnyh-zohsmjggb-ickwdqkgft (MIP) and/or volume rendering reformats were acquired of the c entral intracranial vasculature. For radiation dose reduction, the following was used: automated ex posure control, adjustment of mA and/or kV according to patient size. COMPARISON: None FINDINGS: Image quality: Excellent. Anterior circulation: Intracranial internal carotid arteries are normal in size and flow. The flow within the paired anterior cerebral arteries is normal and symmetric. The flow within the middle cer ebral arteries is normal and symmetric. The anterior communicating artery is seen. No aneurysms are seen. Posterior circulation: Visualized portions of the vertebral arteries demonstrate normal caliber, and join to form a normal appearing basilar artery. origin of the left posterior cerebral artery. Flow within the posterior cerebral arteries is normal and symmetric. No aneurysms are seen. CSF spaces: Ventricles are normal in size and shape. Basal cisterns are patent. No extra-axial flu id collections. Brain: No midline shift. No intracranial bleeds or masses. Cm-white matter interface appears int act. Skull and face: Calvarium and facial bones appear intact, without suspicious lesions. Sinuses: Visualized sinuses and mastoids are clear. IMPRESSION: 1. No acute intracranial abnormality. 2. Negative evaluation of the vasculature of the head. Reviewed by: Fely Owusu MD on 11/22/2020 8:28 PM PDT Approved by: Fely Owusu MD on 11/22/2020 8:28 PM PDT Station ID: [id number]
--- NOTE | 2020-11-22 20:31 | CT Report ---
PROCEDURE: ANGIO NECK W INDICATIONS: L sided facial droop, L neck pain CONTRAST: IV CONTRAST: Optiray 320 ml: 80 PO CONTRAST: *NO PO CONTRAST TECHNIQUE: After the administration of intravenous contrast, 1.5 mm axial sections acquired from the aortic arch to the [place] of [place]. Coronal 3-D maximum intensity projection (MIP) and/or volume rendering ref ormats were then performed. For radiation dose reduction, the following was used: automated exposur e control, adjustment of mA and/or kV according to patient size. COMPARISON: None. FINDINGS: Image quality: Excellent. Carotid system: The great vessels demonstrate a conventional anatomy as they arise from the aortic a rch. The origins of the common carotid arteries appear patent. The common carotid arteries demonstr ate normal calibers and courses. The bifurcation regions appear normal bilaterally. The internal ca rotid arteries demonstrate normal caliber and course. Posterior circulation: The origins of the vertebral arteries appear patent. The more superior porti ons of the vertebral arteries demonstrate normal course and caliber. They join to form a normal appe aring basilar artery. Soft tissues: Visualized neck soft tissues demonstrate no suspicious abnormalities. The thyroid is normal in size. Small bilateral thyroid nodules are present measuring less than 10 mm diameter. Bones: No suspicious bony lesions. Visualized cervical spine appears normally aligned. IMPRESSION: 1. No acute process involving the arterial tree of the head and neck. 2. Small subcentimeter thyroid nodules bilaterally. The estimate of stenosis included in the report of the imaging study was calculated using the NASCET method CLINICAL RECOMMENDATION STATEMENTS: In patients <35 years with an ITN detected on CT, MRI, or extrathyroidal ultrasound, the Committee re commends further evaluation with dedicated thyroid ultrasound if the nodule is ?1 cm and has no suspi cious imaging features, and if the patient has normal life expectancy. In patients ?35 years with an ITN detected on CT, MRI, or extrathyroidal ultrasound, the Committee re commends further evaluation with dedicated thyroid ultrasound if the nodule is ?1.5 cm and has no tess picious imaging features, and if the patient has normal life expectancy. (ACR, 2014) Reviewed by: Fely Owusu MD on 11/22/2020 8:30 PM PDT Approved by: Fely Owusu MD on 11/22/2020 8:30 PM PDT Station ID: [id number]
[2020-11-22 20:38] VITALS: BP 117/84
== END 2020-11-22 21:05 | disposition home or self-care (01) ==
LOC: ED 15:07
DX: H53.2 Diplopia (principal); R42 Dizziness and giddiness
CPT/HCPCS: 36415; 70496; 70498; 71045; 80053; 83690; 84484; 85025; 93005; 99284; Q9967

== ENCOUNTER 2021-01-26 17:30 | Emergency (ER) | payer MEDICARE, OTHER ==
--- NOTE | 2021-01-26 17:58 | ED Physician Documentation ---
PD HPI CHEST PAIN - Stated complaint Stated Complaint: CP - Chief complaint Chief Complaint: Cardiac - History obtained from History obtained from: Patient, Family - Additional information Additional information: 75-year-old woman with no known history of coronary disease had 2 to 3-minute episode nonradiating left-sided substernal chest pain at about 330 starting during light activity and quickly resolving. There was no associated shortness of breath. She feels fine now and has not had chest pain the last 2 half hours. Review of Systems Ten Systems: 10 systems reviewed and negative Cardiac: reports: Chest pain / pressure. denies: Palpitations Respiratory: denies: Dyspnea, Cough Musculoskeletal: denies: Joint pain, Extremity swelling, Pain with weight bearing PD PAST MEDICAL HISTORY - Past Medical History Cardiovascular: None Respiratory: None Endocrine/Autoimmune: None GI: None ASSAYER HELPER: Breast cancer : None HEENT: None Psych: None Musculoskeletal: Other Derm: None - Past Surgical History Past Surgical History: Yes General: Appendectomy /ASSAYER HELPER: Mastectomy - Present Medications Home Medications: Ambulatory Orders Medication Instructions Recorded Confirmed Citalopram [CeleXA] 10 mg PO DAILY 03/01/17 04/05/17 predniSONE [Prednisone] 40 mg PO DAILY #10 tablet 03/28/19 Aspirin Chewable [St Alvin 81 mg PO DAILY #60 tablet 11/22/20 Aspirin] - Allergies Allergies/Adverse Reactions: Allergies Allergy/AdvReac Type Severity Reaction Status Date / Time bupropion Allergy Unknown Verified 01/26/21 17:40 - Social History Does the pt smoke?: No Smoking Status: Never smoker Does the pt drink ETOH?: No Does the pt have substance abuse?: No - POLST Patient has POLST: No PD ED PE NORMAL - Vitals Vital signs reviewed: Yes - General General: No acute distress, Well developed/nourished - HEENT HEENT: PERRL, EOMI - Neck Neck: Supple, no meningeal sign, No bony TTP - Cardiac Cardiac: RRR, No murmur - Respiratory Respiratory: No respiratory distress, Clear bilaterally - Abdomen Abdomen: Non tender - Extremities Extremities: No edema, No calf tenderness / cord Results - Vitals Vitals: Vital Signs - 24 hr 01/26/21 01/26/21 17:36 17:55 Temperature 36.4 C L 36.5 C Heart Rate 77 77 Respiratory 16 16 Rate Blood Pressure 119/76 119/76 O2 Saturation 100 100 Oxygen O2 Source Room air - EKG (time done) 1737 Rate: Rate (enter#) (68) Rhythm: NSR [place]: Normal Intervals: Normal [place] QRS: Normal Ischemia: Non specific changes Compare to prior EKG: Unchanged from prior EKG (no chg from 11/22/20) - Labs Labs: Laboratory Tests 01/26/21 01/26/21 01/26/21 18:15 18:15 18:15 WBC 4.6 L RBC 4.08 L Hgb 13.0 Hct 39.4 MCV 96.6 MCH 31.9 H MCHC 33.0 RDW 13.1 Plt Count 227 MPV 9.4 Neut # (Auto) 2.3 Lymph # (Auto) 1.3 L [place] # (Auto) 0.6 Eos # (Auto) 0.4 Baso # (Auto) 0.0 Absolute Nucleated RBC 0.00 Nucleated RBC % 0.0 Sodium 138 Potassium 3.7 Chloride 101 Carbon Dioxide 27 Anion Gap 10.0 BUN 26 H Creatinine 0.8 Estimated GFR (MDRD) 70 L Glucose 109 H Calcium 9.2 Total Bilirubin 0.8 AST 23 ALT 15 Alkaline Phosphatase 42 Troponin I High Sens 3.3 Total Protein 6.6 L Albumin 4.5 Globulin 2.1 Albumin/Globulin Ratio 2.1 Lipase 36 - Rads (name of study) 1v chest xr Radiology: EMP read contemporaneously (No acute abnormality, benign calcifications at the rib ends.) PD MEDICAL DECISION MAKING - ED course ED course: 75-year-old woman with recent episode of atypical chest pain, resolved for several hours on arrival with negative biomarkers and pain-free while here. Departure - Departure Disposition: 01 Home, Self Care Clinical Impression: Chest pain Qualifiers: Chest pain type: unspecified Qualified Code(s): R07.9 - Chest pain, unspecified Condition: Good Record reviewed to determine appropriate education?: Yes Instructions: ED Chest Pain Atypical Unkn Cause Comments: Return if you develop recurrent chest pain, otherwise follow-up with your primary care physician and discuss stress testing.
--- NOTE | 2021-01-26 18:17 | XRAY Report ---
PROCEDURE: Chest 1 View X-Ray INDICATIONS: Chest Pain TECHNIQUE: One view of the chest was acquired. COMPARISON: November 22, 2020 chest x-ray FINDINGS: Surgical changes and devices: None. Lungs and pleura: No pleural effusions or pneumothorax. No focal consolidation. Nodular opacities pr ojecting bilaterally in the lower lungs favored to represent calcification at rib ends. Mediastinum: Mediastinal contours appear normal. Heart size is normal. Bones and chest wall: No suspicious bony lesions. Overlying soft tissues appear unremarkable. IMPRESSION: No acute cardiopulmonary abnormality. Nodular opacities projecting bilaterally in the lower lungs favored to represent benign calcification at rib ends. Reviewed by: Bobo Verdugo on 01/26/2021 5:15 PM [facility] Approved by: Bobo Verdugo on 01/26/2021 5:15 PM [facility] Station ID: [id number]
[2021-01-26 18:28] LABS: BASOPHILS % (AUTO) 0.7 %; EOSINOPHILS # (AUTO) 0.4 10^3/uL (0.0-0.7); EOSINOPHILS % (AUTO) 7.7 %; HCT - HEMATOCRIT 39.4 % (37.0-47.0); LYMPHOCYTES # (AUTO) 1.3 10^3/uL (1.5-3.5); LYMPHOCYTES % (AUTO) 28.4 %; MEAN CORPUSCULAR HEMOGLOBIN 31.9 pg (27.0-31.0); MEAN CORPUSCULAR VOLUME 96.6 fL (81.0-99.0); MEAN PLATELET VOLUME 9.4 fL (7.9-10.8); MONOCYTES # (AUTO) 0.6 10^3/uL (0.0-1.0); MONOCYTES % (AUTO) 12.3 %; NEUTROPHILS # (AUTO) 2.3 10^3/uL (1.5-6.6); NEUTROPHILS % (AUTO) 50.7 %; PLT - PLATELET COUNT 227 10^3/uL (130-450); RED BLOOD COUNT 4.08 10^6/uL (4.20-5.40); RED CELL DISTRIBUTION WIDTH 13.1 % (12.0-15.0); WHITE BLOOD COUNT 4.6 x10^3/uL (4.8-10.8)
[2021-01-26 18:45] LABS: ALBUMIN 4.5 g/dL (3.2-5.5); ALBUMIN/GLOBULIN RATIO 2.1 (1.0-2.2); BILIRUBIN,TOTAL 0.8 mg/dL (0.2-1.0); CALCIUM 9.2 mg/dL (8.5-10.3); CREATININE 0.8 mg/dL (0.4-1.0); POTASSIUM 3.7 mmol/L (3.5-5.0); TOTAL PROTEIN 6.6 g/dL (6.7-8.2)
[2021-01-26 19:38] VITALS: BP 124/81
== END 2021-01-26 19:41 | disposition home or self-care (01) ==
LOC: ED 17:30
DX: R07.89 Other chest pain (principal); Z79.82 Long term (current) use of aspirin
CPT/HCPCS: 36415; 80053; 83690; 84484; 85025; 93005; 99284

== ENCOUNTER 2021-04-06 12:33 | Outpatient (CLI) | payer MEDICARE, OTHER | END 2021-04-06 12:34 | disposition critical access hospital (66) | LOC: EMS 12:33 | DX: R55 Syncope and collapse (principal) | CPT/HCPCS: A0425; A0427 ==

== ENCOUNTER 2021-04-06 13:03 | Emergency (ER) | payer MEDICARE, OTHER ==
--- NOTE | 2021-04-06 13:30 | ED Physician Documentation ---
PD HPI SYNCOPE - Stated complaint Stated Complaint: SYNCOPE - Chief complaint Chief Complaint: Cardiac - History obtained from History obtained from: Patient, Family - History of Present Illness Witnessed: Unwitnessed Timing - onset: Today Duration: Seconds Preceding symptoms: Diaphoresis, Nausea / vomiting, Light headed Associated symptoms: Diaphoresis, Other (back pain). 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 Her states that he was not in the room when this occurred but he found her vomiting and found that she was vacant. He did not think that she lost consciousness entirely but she was not able to answer him and had a vacant stare. He called 911 when medics arrived the patient with come to and was acting more normally and was complaining of some pain in her lower back on the right side. She became diaphoretic as well with this. She denies any foul taste of the food or a reason for her nausea except that she did get a [place] shot yesterday. She has had 2 other more during the shots and has not had any type of reaction. Review of Systems Constitutional: denies: Fever Nose: denies: Congestion Throat: denies: Sore throat Cardiac: denies: Chest pain / pressure, Palpitations Respiratory: denies: Dyspnea, Cough GI: reports: Nausea, Vomiting. denies: Abdominal Pain : denies: Dysuria, Frequency Skin: denies: Rash Musculoskeletal: denies: Neck pain, Back pain, Extremity pain Neurologic: reports: Syncope. 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 : None HEENT: None Psych: None Musculoskeletal: Other Derm: None - Past Surgical History Past Surgical History: Yes General: Appendectomy /[employer] BILINGUAL: Mastectomy - Present Medications Home Medications: Ambulatory Orders Medication Instructions Recorded Confirmed Citalopram [CeleXA] 10 mg PO DAILY 03/01/17 04/05/17 predniSONE [Prednisone] 40 mg PO DAILY #10 tablet 03/28/19 Aspirin Chewable [St Alvin 81 mg PO DAILY #60 tablet 11/22/20 Aspirin] - Allergies Allergies/Adverse Reactions: Allergies Allergy/AdvReac Type Severity Reaction Status Date / Time bupropion Allergy Unknown Verified 04/06/21 13:18 - Social History Does the pt smoke?: No Smoking Status: Never smoker Does the pt drink ETOH?: No Does the pt have substance abuse?: No - POLST Patient has POLST: No PD ED PE NORMAL - Vitals Vital signs reviewed: Yes (Hypotensive) - General General: Alert and oriented X 3, No acute distress, Well developed/nourished, Other (Speech latency and delay in execution of motor commands are not present.) - HEENT HEENT: Atraumatic, PERRL, EOMI - Neck Neck: Supple, no meningeal sign, No bony TTP - Cardiac Cardiac: RRR, Other (2 out of 6 holosystolic murmur left sternal border.) - Respiratory Respiratory: No respiratory distress, Clear bilaterally, Other (bilateral mastectomy) - Abdomen Abdomen: Soft, Non tender, Other (thin) - Back Back: No CVA TTP, No spinal TTP, Other (maybe some tenderness to the lower lumbar paraspinous area on the right laterally .) - Derm Derm: Normal color, Warm and dry, No rash - Extremities Extremities: No deformity, No edema - Neuro Neuro: Alert and oriented X 3, trouble operator 2-12 intact, No motor deficit, No sensory deficit, Normal speech Eye Opening: Spontaneous Motor: Obeys Commands Verbal: Oriented GCS Score: 15 - Psych Psych: Normal mood, Normal affect Results - Vitals Vitals: Vital Signs - 24 hr 04/06/21 04/06/21 13:15 15:11 Temperature 37.3 C Heart Rate 70 64 Respiratory 14 15 Rate Blood Pressure 86/60 L 93/59 L O2 Saturation 100 96 Oxygen O2 Source Room air - EKG (time done) 1311 Rate: Rate (enter#) (65) Rhythm: NSR Gary: RAD Ischemia: Normal ST segments Compare to prior EKG: Changed from prior EKG (SPT 8/28/21 non-specific repol abnormalities have improved. ) Computer interpretation: Agree with computer - Labs Labs: Laboratory Tests 04/06/21 04/06/21 04/06/21 14:04 14:04 14:04 WBC 7.9 RBC 3.89 L Hgb 12.4 Hct 37.9 MCV 97.4 MCH 31.9 H MCHC 32.7 RDW 13.2 Plt Count 193 MPV 9.4 Neut # (Auto) 7.0 H Lymph # (Auto) 0.3 L [place] # (Auto) 0.6 Eos # (Auto) 0.0 Baso # (Auto) 0.0 Absolute Nucleated RBC 0.00 Nucleated RBC % 0.0 Sodium 139 Potassium 4.1 Chloride 103 Carbon Dioxide 28 Anion Gap 8.0 BUN 23 H Creatinine 0.9 Estimated GFR (MDRD) 61 L Glucose 116 H Calcium 9.4 Total Bilirubin 0.9 AST 24 ALT 15 Alkaline Phosphatase 40 L Troponin I High Sens B-Natriuretic Peptide 118 H Total Protein 6.5 L Albumin 4.1 Globulin 2.4 Albumin/Globulin Ratio 1.7 Lipase 33 04/06/21 14:04 WBC RBC Hgb Hct MCV MCH MCHC RDW Plt Count MPV Neut # (Auto) Lymph # (Auto) [place] # (Auto) Eos # (Auto) Baso # (Auto) Absolute Nucleated RBC Nucleated RBC % Sodium Potassium Chloride Carbon Dioxide Anion Gap BUN Creatinine Estimated GFR (MDRD) Glucose Calcium Total Bilirubin AST ALT Alkaline Phosphatase Troponin I High Sens 4.5 B-Natriuretic Peptide Total Protein Albumin Globulin Albumin/Globulin Ratio Lipase - Rads (name of study) CT head Radiology: Prelim report reviewed (Impression: CT head without acute intracranial abnormalities. No acute calvarial fractures.), EMP read indepedently, See rad report Chest Radiology: Prelim report reviewed (Impression: Stable examination of the chest without acute cardiopulmonary abnormalities.), EMP read indepedently, See rad report Procedures - Bedside sono Bedside sono by EMP: With use of bedside ultrasound I was able to image the patient's abdominal aorta do not find any area of aneurysm. I was also able to image the heart without evidence of pericardial effusion. - IVC sono (time) 1320 Bedside IVC sono: IVC measures (cm) (1.56), Euvolemia PD MEDICAL DECISION MAKING - ED course Complexity details: reviewed old records, reviewed results, re-evaluated patient, considered differential, d/w patient ED course: 76-year-old female who had a syncopal episode while vomiting has resolved her nausea was not found to be dehydrated on interrogation the inferior vena cava and the remainder of her work-up was otherwise unremarkable. We did look at her aorta with bedside ultrasound as well as the cardiac silhouette and these were without evidence of pericardial effusion or wall motion abnormality or evidence of aneurysm. The patient had no symptoms in the emergency department felt well and was discharged home. Suspicion is she may have had reaction to the vaccination with this vasovagal episode associated with vomiting. Symptoms appear resolved. Departure - Departure Disposition: 01 Home, Self Care Clinical Impression: Vasovagal syncope Condition: Stable Instructions: ED Syncope Vasovagal, ED Near Syncope Vasovagal Follow-Up: Dominick Baptiste MD [Primary Care Provider] -
--- NOTE | 2021-04-06 14:06 | XRAY Report ---
PROCEDURE: Chest 1 View X-Ray INDICATIONS: chest pain TECHNIQUE: One view of the chest was acquired. COMPARISON: 01/26/2021 FINDINGS: Surgical changes and devices: None. Lungs and pleura: No pleural effusions or pneumothorax. Lungs are clear. Mediastinum: Mediastinal contours appear normal. Heart size is normal. Bones and chest wall: No suspicious bony lesions. Overlying soft tissues appear unremarkable. IMPRESSION: Stable examination of the chest without acute cardiopulmonary abnormalities. Reviewed by: Joaquin Patel MD on 04/06/2021 2:05 PM PDT Approved by: Joaquin Patel MD on 04/06/2021 2:05 PM PDT Station ID: [id number]
[2021-04-06 14:14] LABS: BASOPHILS % (AUTO) 0.4 %; HCT - HEMATOCRIT 37.9 % (37.0-47.0); HGB - HEMOGLOBIN 12.4 g/dL (12.0-16.0); LYMPHOCYTES # (AUTO) 0.3 10^3/uL (1.5-3.5); LYMPHOCYTES % (AUTO) 3.8 %; MEAN CORPUSCULAR HEMOGLOBIN 31.9 pg (27.0-31.0); MEAN CORPUSCULAR HGB CONC 32.7 g/dL (32.0-36.0); MEAN CORPUSCULAR VOLUME 97.4 fL (81.0-99.0); MEAN PLATELET VOLUME 9.4 fL (7.9-10.8); MONOCYTES # (AUTO) 0.6 10^3/uL (0.0-1.0); MONOCYTES % (AUTO) 7.3 %; NEUTROPHILS % (AUTO) 88.1 %; PLT - PLATELET COUNT 193 10^3/uL (130-450); RED BLOOD COUNT 3.89 10^6/uL (4.20-5.40); RED CELL DISTRIBUTION WIDTH 13.2 % (12.0-15.0); WHITE BLOOD COUNT 7.9 x10^3/uL (4.8-10.8)
[2021-04-06 14:26] LABS: ALBUMIN 4.1 g/dL (3.2-5.5); ALBUMIN/GLOBULIN RATIO 1.7 (1.0-2.2); BILIRUBIN,TOTAL 0.9 mg/dL (0.2-1.0); CALCIUM 9.4 mg/dL (8.5-10.3); CREATININE 0.9 mg/dL (0.4-1.0); POTASSIUM 4.1 mmol/L (3.5-5.0); TOTAL PROTEIN 6.5 g/dL (6.7-8.2)
--- NOTE | 2021-04-06 15:06 | CT Report ---
PROCEDURE: HEAD WO INDICATIONS: syncope and vacancy TECHNIQUE: Noncontrast 4.5 mm thick angled axial sections acquired from the foramen magnum to the vertex. For r adiation dose reduction, the following was used: automated exposure control, adjustment of mA and/or kV according to patient size. COMPARISON: 11/22/2020. FINDINGS: Image quality: Excellent. CSF spaces: Basal cisterns are patent. No extra-axial fluid collections. Ventricles are normal in size and shape. Brain: No midline shift. No intracranial masses or hemorrhage. Cm-white matter interface is norm al. Skull and face: Calvarium and visualized facial bones are intact, without suspicious lesions. Sinuses: Visualized sinuses and mastoids are clear. IMPRESSION: CT head without acute intracranial abnormalities. No acute calvarial fractures. Reviewed by: Joaquin Patel MD on 04/06/2021 3:04 PM PDT Approved by: Joaquin Patel MD on 04/06/2021 3:04 PM PDT Station ID: [id number]
[2021-04-06 15:55] VITALS: BP 109/73
[2021-04-06 16:00] LABS: BILIRUBIN,URINE NEGATIVE (NEGATIVE); CLARITY,URINE CLEAR (CLEAR); GLUCOSE, URINE (UA) NEGATIVE (NEGATIVE); KETONES,URINE (UA) NEGATIVE (NEGATIVE); LEUKOCYTE ESTERASE, URINE TRACE (NEGATIVE); NITRITE,URINE NEGATIVE (NEGATIVE); OCCULT BLOOD,URINE NEGATIVE (NEGATIVE); PROTEIN,URINE NEGATIVE (NEGATIVE); UROBILINOGEN,URINE 0.2 (NORMAL) E.U./dL (NORMAL)
[2021-04-06 16:12] LABS: BACTERIA,URINE Rare /HPF (None Seen); MUCUS,URINE Few Strands; RBC,URINE 0-5 /HPF (0-5); SQUAMOUS EPITHELIAL CELL,UR RARE Squamous (<= Few); WBC,URINE 0-3 /HPF (0-5)
== END 2021-04-06 15:56 | disposition home or self-care (01) ==
LOC: EDUNIT# → ED 13:03
DX: R55 Syncope and collapse (principal); R11.2 Nausea with vomiting, unspecified; R61 Generalized hyperhidrosis; M54.50 Low back pain, unspecified; R01.1 Cardiac murmur, unspecified; Z79.82 Long term (current) use of aspirin
CPT/HCPCS: 36415; 80053; 81001; 81003; 83690; 83880; 84484; 85025; 87086; 93005; 99283; 99284

== ENCOUNTER 2021-05-03 12:15 | Outpatient (CLI) | payer MEDICARE, OTHER | END 2021-05-03 23:59 | disposition home or self-care (01) | LOC: LAB 12:15 | PROVIDERS: ATTEND Physician Assistant Medical | DX: L03.019 Cellulitis of unspecified finger (principal) | CPT/HCPCS: 87070; 87077; 87205 ==

== ENCOUNTER 2022-08-13 08:00 | Outpatient (CLI) | payer MEDICARE, OTHER | END 2022-08-13 23:59 | disposition home or self-care (01) | LOC: LAB.R 08:00 | PROVIDERS: ATTEND Nurse Practitioner Family | DX: N30.01 Acute cystitis with hematuria (principal) | CPT/HCPCS: 87086 ==

== ENCOUNTER 2022-09-23 19:20 | Emergency (ER) | payer MEDICARE, OTHER ==
--- NOTE | 2022-09-23 20:31 | ED Physician Documentation ---
History of Present Illness - Stated complaint Stated Complaint: WEAK,GLF - Chief complaint Chief Complaint: General - History obtained from History obtained from: Family () - Additonal information Additional information: 37-year-old woman with history of Alzheimer's dementia presents status post ground-level fall 2 hours prior to arrival onto her bottom. No head trauma. No LOC. Patient has been weak and unsteady today per her . Denies fevers, cough, urinary symptoms, abdominal pain, or pain anywhere in fact.Patient did start mirtazapine 3 weeks ago but otherwise has had no medication changes. Review of Systems Constitutional: denies: Fever Eyes: denies: Loss of vision Ears: denies: Ear pain Nose: denies: Rhinorrhea / runny nose Throat: denies: Sore throat Cardiac: denies: Chest pain / pressure Respiratory: denies: Dyspnea, Cough GI: denies: Abdominal Pain, Nausea, Diarrhea : denies: Dysuria Skin: denies: Rash Musculoskeletal: denies: Neck pain, Back pain Neurologic: reports: Generalized weakness. 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 - Present Medications Home Medications: Ambulatory Orders Medication Instructions Recorded Confirmed Citalopram [CeleXA] 10 mg PO DAILY 03/01/17 04/05/17 predniSONE [Prednisone] 40 mg PO DAILY #10 tablet 03/28/19 Aspirin Chewable [St Alvin 81 mg PO DAILY #60 tablet 11/22/20 Aspirin] Mirtazapine 7.5 mg PO 09/23/22 - Allergies Allergies/Adverse Reactions: Allergies Allergy/AdvReac Type Severity Reaction Status Date / Time bupropion Allergy Unknown Verified 04/06/21 13:18 - Social History Does the pt smoke?: No Smoking Status: Never smoker Does the pt drink ETOH?: No Does the pt have substance abuse?: No - POLST Patient has POLST: No PD ED PE NORMAL - Vitals Vital signs reviewed: Yes - General General: No acute distress, Well developed/nourished, Other (alert, somewhat abrasive affect. baseline dementia) - HEENT HEENT: Atraumatic, PERRL, EOMI - Neck Neck: Supple, no meningeal sign - Cardiac Cardiac: RRR - Respiratory Respiratory: No respiratory distress, Clear bilaterally - Abdomen Abdomen: Non tender, Non distended - Derm Derm: Normal color, Warm and dry - Extremities Extremities: No deformity, No edema - Neuro Neuro: No motor deficit, No sensory deficit Results - Vitals Vitals: Vital Signs - 24 hr 09/23/22 09/23/22 09/23/22 19:36 20:00 20:15 Temperature 37.1 C Heart Rate 95 84 Respiratory 18 17 19 Rate Blood Pressure 111/62 126/66 O2 Saturation 97 98 Oxygen O2 Source Room air - Labs Labs: Laboratory Tests 09/23/22 09/23/22 20:34 20:34 WBC 8.3 RBC 3.84 L Hgb 11.9 L Hct 37.0 MCV 96.4 MCH 31.0 MCHC 32.2 RDW 14.0 Plt Count 197 MPV 9.1 Neut # (Auto) 6.8 H Lymph # (Auto) 0.5 L [place] # (Auto) 1.0 Eos # (Auto) 0.0 Baso # (Auto) 0.0 Absolute Nucleated RBC 0.00 Nucleated RBC % 0.0 Sodium 138 Potassium 3.9 Chloride 100 L Carbon Dioxide 26 Anion Gap 12.0 BUN 21 H Creatinine 0.8 Estimated GFR (MDRD) 70 L Glucose 129 H Calcium 9.1 Total Bilirubin 0.5 AST 31 ALT 21 Alkaline Phosphatase 50 Total Protein 7.0 Albumin 4.2 Globulin 2.8 Albumin/Globulin Ratio 1.5 Lipase 41 PD Medical Decision Making - ED course ED course: 77-year-old woman with history of dementia presents status post ground-level fall 2 hours prior to arrival onto her bottom. She appears to have suffered no mechanical injury but her is worried because she has been weak and unsteady recently, worsening today. He also states she hasn't been eating or drinking much lately. Patient herself has no complaints at this time. We will obtain cbc, abdominal panel, and reevaluate. Labwork unremarkable except for some mild anemia with hb 11.9, down from 12.4 on previous. patient declined rectal exam to evaluate for blood. They plan to follow-up with their pcp and dementia career center director. Return precautions given. Departure - Departure Disposition: 01 Home, Self Care Clinical Impression: Weakness, Fall, Anemia Condition: Stable Instructions: Anemia Comments: You were seen in the emergency department for evaluation of weakness and multiple falls. Your lab work was normal except for some anemia with hemoglobin of 11.9, down from 12.4 on previous labs. Please follow-up with your primary care provider as well as your memory career center director. Return to the emergency department for new or worsening symptoms or other concerns.
[2022-09-23 20:39] LABS: BASOPHILS % (AUTO) 0.2 %; HGB - HEMOGLOBIN 11.9 g/dL (12.0-16.0); LYMPHOCYTES # (AUTO) 0.5 10^3/uL (1.5-3.5); LYMPHOCYTES % (AUTO) 6.5 %; MEAN CORPUSCULAR HGB CONC 32.2 g/dL (32.0-36.0); MEAN CORPUSCULAR VOLUME 96.4 fL (81.0-99.0); MEAN PLATELET VOLUME 9.1 fL (7.9-10.8); MONOCYTES % (AUTO) 11.6 %; NEUTROPHILS # (AUTO) 6.8 10^3/uL (1.5-6.6); NEUTROPHILS % (AUTO) 81.3 %; PLT - PLATELET COUNT 197 10^3/uL (130-450); RED BLOOD COUNT 3.84 10^6/uL (4.20-5.40); WHITE BLOOD COUNT 8.3 x10^3/uL (4.8-10.8)
[2022-09-23 20:51] LABS: ALBUMIN 4.2 g/dL (3.2-5.5); ALBUMIN/GLOBULIN RATIO 1.5 (1.0-2.2); BILIRUBIN,TOTAL 0.5 mg/dL (0.2-1.0); CALCIUM 9.1 mg/dL (8.5-10.3); CREATININE 0.8 mg/dL (0.4-1.0); POTASSIUM 3.9 mmol/L (3.5-5.0)
[2022-09-23 21:28] VITALS: BP 118/72
== END 2022-09-23 21:28 | disposition home or self-care (01) ==
LOC: ED 19:20
DX: R53.1 Weakness (principal); D64.9 Anemia, unspecified; R29.6 Repeated falls; G30.9 Alzheimer's disease, unspecified; F02.80 Dementia in other diseases classified elsewhere, unspecified severity, without behavioral disturbance, psychotic disturbance, mood disturbance, and anxiety
CPT/HCPCS: 36415; 80053; 83690; 85025; 99283